=== PATIENT | male | born 1955 | race Caucasian/White ===

== ENCOUNTER → 2018-07-24 | Outpatient (CLI) | payer BC ==
[~2018-07-24] MED LIST: CLONIDINE0.2 MG PO; FENOFIBRATE145 M1 PO; FERROUS SULFATE1 GRA; HYDROCODONE BIT1 T11 PO; INSULIN; LANTUS SOL100 UNIT/1 SQ; LASIX80 MG PO; LISINOPRIL-HCT1 EACH PO; NORVASC2.5 MG PO; PRESERVISION A1 EAC1 PO; RENA-VITE1 TAB PO; Rocaltrol0.25 MCG PO; TRICOR145 MG PO
--- NOTE | ~2018-07-24 | ST ---
[place], [place] EXERCISE STRESS TEST REPORT NAME: MARK COOLEY UNIT #: [id number] ROOM: DOCTOR: FELIPE MATTHEWS [facility],JOHANNE BIRTHDATE: [birth year] DOS: 07/24/2018 PROCEDURE: Lexiscan stress test. FINDINGS: The patient underwent Lexiscan infusion 0.4 mg for 10 seconds. Heart rate is 62. No ischemic changes on EKG. No complication noted. Isotope was injected. Myocardial perfusion scan to follow. No complication noted. JOHANNE WANG MD CM:STRESS:EXERCISE STRESS TEST REPORT [id number] JOHANNE WANG MD [facility]
--- NOTE | 2018-07-24 10:07 | NUR ---
INFORMED CONSENT OBTAINED FOR A LEXISCAN STRESS TEST WITH DR. WANG. RESTING EKG NSR WITH A HT RT OF 61 AND BP OF 124/66. BREATH SOUNDS CLEAR, SPO2 92% VIA RA. COMPLETED ONE MINUTE OF A LEXISCAN PROTOCOL RECEIVING LEXISCAN 0.4 MG OVER 10 SECONDS. DEVELOPED AN "ODD FEELING" THAT WAS RELIEVED IN RECOVERY. HAD A PEAK HT RT OF 62 WITH A BP OF 142/62. LAST RECOVERY HT RT OF 61 WITH A BP OF 130/60. AWAITING NUCLEAR IMAGING IN STABLE CONDITION
== END | disposition home or self-care (01) ==
LOC: CARD 03:09
DX: Z01.818 Encounter for other preprocedural examination (principal); R06.02 Shortness of breath; R53.81 Other malaise

== ENCOUNTER 2019-06-24 10:22 | Emergency (ER) | payer BC, MEDICARE ==
[~2019-06-24] VITALS: Ht 175.2 cm; Wt 136.1 kg
[2019-06-24 10:45] LABS: BASO # 0.1 10*3/uL (0.0-0.1); BASO % 0.6 % (0.0-1.0); EOS # 0.3 10*3/uL (0.0-0.4); EOS % 3.4 % (1.0-4.0); HEMATOCRIT 31.9 % (42.0-52.0); HEMOGLOBIN 9.7 g/dl (14.0-18.0); LYMPH # 1.5 10*3/uL (1.3-4.4); LYMPH % 18.1 % (27.0-41.0); MEAN CELL VOLUME 97.9 fl (80.0-94.0); MEAN CORPUSCULAR HGB 29.8 pg (27.0-31.0); MEAN CORPUSCULAR HGB CONC 30.4 g/dl (33.0-37.0); MEAN PLATELET VOLUME 9.3 fl (9.6-12.3); MONO # 0.7 10*3/uL (0.1-1.0); MONO % 8.1 % (3.0-9.0); NEUT # 5.7 10*3/uL (2.3-7.9); NEUT % 69.6 % (47.0-73.0); PLATELET COUNT AUTOMATED 239 10*3/uL (130-400); RED BLOOD COUNT 3.26 10*6/uL (4.50-5.90); RED CELL DISTRI WIDTH 18.5 % (0-14.5); WHITE BLOOD COUNT 8.2 10*3/uL (4.8-10.8)
[2019-06-24 10:54] LABS: ACT PARTIAL THROMBO TIME 31.3 SECONDS (20.0-32.1); INTERNATIONAL NORM RATIO 1.1 (2.0-3.5)
[2019-06-24 11:00] LABS: ALBUMIN 3.2 gm/dl (3.1-4.5); ALKALINE PHOSPHATASE 54 U/L (45-117); BUN 21 mg/dl (7-24); CHLORIDE 99 mmol/L (98-107); CREATININE 3.56 mg/dL (0.70-1.30); POTASSIUM 3.8 mmol/L (3.5-5.1); SGOT/AST 11 IU/L (3-35); SGPT/ALT 13 U/L (12-78); SODIUM 138 mmol/L (136-145); TOTAL PROTEIN 7.5 gm/dL (6.4-8.2)
[2019-06-24 11:05] LABS: TROPONIN I < 0.015 ng/ml (<0.045)
== END 2019-06-24 12:02 | disposition home or self-care (01) ==
LOC: ED 10:22
PROVIDERS: Emergency Medicine
DX: R06.00 Dyspnea, unspecified (principal); R06.02 Shortness of breath; R05 Cough; I50.9 Heart failure, unspecified; I10 Essential (primary) hypertension; E11.9 Type 2 diabetes mellitus without complications; M10.9 Gout, unspecified; Z79.899 Other long term (current) drug therapy; Z79.4 Long term (current) use of insulin

== ENCOUNTER → 2019-07-02 | Outpatient (CLI) | payer MEDICARE, BC ==
--- NOTE | 2019-07-02 13:57 | NUR ---
SPEECH PATHOLOGY Outpatient MBS completed as per orders. Patient was alert and cooperative and reported a feelig of globus when eating as well as cough. He recently presented to ED 06/24/19 due to increased cough and phlegm. Medical history is significant for CHF, DM, HTN. Patient receives dialysis 3x weekly. He consumes a regular diet and thin liquid. Oral musculature exam revealed presence of natural teeth which were in good condition. Lingual/labial/buccal skills were WNL. Patient was able to volitionally cough and swallow. Hoarse vocal quality was displayed. Patient was assessed with puree, solids and thin liquid. Results revealed oral/pharyngeal swallowing skills essentially WNL. He did display transient upper airway penetration with thin liquids when taken in large sip. Recommend regular diet and thin liquid, with liquid taken in small single sip. Recommend follow up with physician if hoarseness does not improve. Results and caroline. were shared with patient and family and they verbalized understanding. Dictated report to follow. Thank you for this referral. CLARISA RAMIREZ MSCCC-SENIOR SHAREPOINT DEVELOPER
== END | disposition home or self-care (01) ==
LOC: RAD/SH 07-01 10:00
DX: R13.10 Dysphagia, unspecified (principal)

== ENCOUNTER 2020-04-20 09:23 | Inpatient (IN) | payer MEDICARE, BC ==
[2020-04-20] VITALS (13 sets, daily range): BP systolic 106–155; BP diastolic 46–68
[~2020-04-20] VITALS: Ht 180 cm; Wt 97.1 kg
[2020-04-20 10:14] LABS: BASO # 0.1 10*3/uL (0.0-0.1); BASO % 0.6 % (0.0-1.0); EOS # 0.4 10*3/uL (0.0-0.4); LYMPH % 11.9 % (27.0-41.0); MEAN CELL VOLUME 98.3 fl (80.0-94.0); MEAN CORPUSCULAR HGB 29.9 pg (27.0-31.0); MEAN CORPUSCULAR HGB CONC 30.4 g/dl (33.0-37.0); MEAN PLATELET VOLUME 9.2 fl (9.6-12.3); MONO # 0.9 10*3/uL (0.1-1.0); MONO % 10.7 % (3.0-9.0); NEUT % 71.7 % (47.0-73.0); PLATELET COUNT AUTOMATED 262 10*3/uL (130-400); RED BLOOD COUNT 2.34 10*6/uL (4.50-5.90); RED CELL DISTRI WIDTH 16.4 % (0-14.5); WHITE BLOOD COUNT 8.3 10*3/uL (4.8-10.8)
[2020-04-20 10:35] LABS: ALBUMIN 2.3 gm/dl (3.1-4.5); CREATININE 5.58 mg/dL (0.70-1.30); POTASSIUM 3.9 mmol/L (3.5-5.1); TOTAL PROTEIN 6.1 gm/dL (6.4-8.2); TROPONIN I 0.028 ng/ml (<0.045)
[2020-04-20] MEDS ORDERED: DIGITEK125 MCG PO (12:07)
[2020-04-20] MEDS ORDERED: DILTIAZEM HCL60 M1 PO (12:08)
[2020-04-20] MEDS ORDERED: ECOTRIN81 M1 PO (12:08)
[2020-04-20] MEDS ORDERED: FOSRENOL500 MG PO (12:11)
[2020-04-20] MEDS ORDERED: IMODIUM A-D2 M2 PO (12:12)
[2020-04-20] MEDS ORDERED: IMDUR SA60 M1 PO (12:13)
[2020-04-20] MEDS ORDERED: PRINIVIL20 M1 PO (12:14)
[2020-04-20] MEDS ORDERED: MELATONIN3 M3 PO (12:14)
[2020-04-20] MEDS ORDERED: LOPRESSOR100 M1 PO ×2 (12:15→16:18)
[2020-04-20] MEDS ORDERED: PLAVIX75 M1 PO (12:15)
[2020-04-20] MEDS ORDERED: PROTONIX20 MG PO (16:19)
[2020-04-20] MEDS ORDERED: RENAL VITAMIN0.8 MG PO (16:20)
[2020-04-21] VITALS: BP 154/65
[2020-04-21 05:42] LABS: ALBUMIN 2.5 gm/dl (3.1-4.5); CREATININE 6.06 mg/dL (0.70-1.30); POTASSIUM 4.4 mmol/L (3.5-5.1); TOTAL PROTEIN 6.7 gm/dL (6.4-8.2)
[2020-04-21 05:48] LABS: THYROID STIM HORMONE (HS) 2.62 uIU/ml (0.358-4.75)
[2020-04-21 06:15] LABS: BASO % 0.4 % (0.0-1.0); EOS # 0.6 10*3/uL (0.0-0.4); EOS % 5.5 % (1.0-4.0); HEMATOCRIT 27.4 % (42.0-52.0); LYMPH # 1.1 10*3/uL (1.3-4.4); LYMPH % 9.6 % (27.0-41.0); MEAN CELL VOLUME 97.9 fl (80.0-94.0); MEAN CORPUSCULAR HGB CONC 30.7 g/dl (33.0-37.0); MEAN PLATELET VOLUME 9.7 fl (9.6-12.3); MONO # 1.1 10*3/uL (0.1-1.0); MONO % 9.3 % (3.0-9.0); NEUT # 8.5 10*3/uL (2.3-7.9); NEUT % 74.8 % (47.0-73.0); PLATELET COUNT AUTOMATED 315 10*3/uL (130-400); RED CELL DISTRI WIDTH 16.6 % (0-14.5); WHITE BLOOD COUNT 11.4 10*3/uL (4.8-10.8)
[2020-04-21 06:17] LABS: ACT PARTIAL THROMBO TIME 28.2 SECONDS (20.0-32.1); INTERNATIONAL NORM RATIO 1.1 (2.0-3.5)
[2020-04-21 07:48] LABS: VITAMIN D, 25-HYDROXY 32.5 ng/mL (30-100)
[2020-04-21 08:00] VITALS: BP 138/57
[2020-04-21 09:06] LABS: HEP B CORE AB, IGM Negative (Negative); HEPATITIS B SURFACE AG Negative (Negative); HEPATITIS C VIRUS ANTIBODY <0.1 s/co (0.0-0.9)
[2020-04-21 12:00] VITALS: BP 120/59
[2020-04-21 16:00] VITALS: BP 129/54
[2020-04-21 20:00] VITALS: BP 131/54
[2020-04-22] VITALS: BP 127/45
[2020-04-22 06:33] LABS: BASO # 0.1 10*3/uL (0.0-0.1); BASO % 0.5 % (0.0-1.0); EOS # 0.7 10*3/uL (0.0-0.4); EOS % 7.2 % (1.0-4.0); LYMPH % 9.9 % (27.0-41.0); MEAN CELL VOLUME 97.4 fl (80.0-94.0); MEAN CORPUSCULAR HGB CONC 30.8 g/dl (33.0-37.0); MEAN PLATELET VOLUME 9.4 fl (9.6-12.3); MONO % 9.8 % (3.0-9.0); NEUT # 7.2 10*3/uL (2.3-7.9); NEUT % 72.2 % (47.0-73.0); PLATELET COUNT AUTOMATED 278 10*3/uL (130-400); RED BLOOD COUNT 2.67 10*6/uL (4.50-5.90); RED CELL DISTRI WIDTH 16.6 % (0-14.5); WHITE BLOOD COUNT 9.9 10*3/uL (4.8-10.8)
[2020-04-22 07:01] LABS: CREATININE 7.2 mg/dL (0.70-1.30); POTASSIUM 4.5 mmol/L (3.5-5.1)
[2020-04-22 08:00] VITALS: BP 140/60
[2020-04-22 14:00] VITALS: BP 154/58
[2020-04-22 20:00] VITALS: BP 96/41
[2020-04-23] VITALS: BP 134/63
[2020-04-23 06:20] LABS: BASO % 0.4 % (0.0-1.0); EOS # 0.6 10*3/uL (0.0-0.4); EOS % 5.4 % (1.0-4.0); HEMATOCRIT 25.1 % (42.0-52.0); LYMPH # 1.3 10*3/uL (1.3-4.4); LYMPH % 12.3 % (27.0-41.0); MEAN CELL VOLUME 97.3 fl (80.0-94.0); MEAN CORPUSCULAR HGB 30.2 pg (27.0-31.0); MEAN CORPUSCULAR HGB CONC 31.1 g/dl (33.0-37.0); MEAN PLATELET VOLUME 9.6 fl (9.6-12.3); MONO # 1.1 10*3/uL (0.1-1.0); MONO % 10.3 % (3.0-9.0); NEUT # 7.5 10*3/uL (2.3-7.9); NEUT % 71.2 % (47.0-73.0); PLATELET COUNT AUTOMATED 313 10*3/uL (130-400); RED BLOOD COUNT 2.58 10*6/uL (4.50-5.90); RED CELL DISTRI WIDTH 16.6 % (0-14.5); WHITE BLOOD COUNT 10.5 10*3/uL (4.8-10.8)
[2020-04-23 06:25] LABS: POTASSIUM 3.9 mmol/L (3.5-5.1); TOTAL PROTEIN 5.8 gm/dL (6.4-8.2)
[2020-04-23 06:26] LABS: CREATININE 4.66 mg/dL (0.70-1.30)
[2020-04-23 08:00] VITALS: BP 155/53
[2020-04-23 12:00] VITALS: BP 125/58
[2020-04-23 16:00] VITALS: BP 120/63; BP 149/57
[2020-04-23 18:27] LABS: LIPASE 138 U/L (73-393)
[2020-04-23 20:00] VITALS: BP 123/47
[2020-04-24] VITALS: BP 142/62
[2020-04-24 07:07] LABS: BASO % 0.4 % (0.0-1.0); EOS # 0.6 10*3/uL (0.0-0.4); EOS % 6.3 % (1.0-4.0); HEMATOCRIT 25.5 % (42.0-52.0); LYMPH # 1.2 10*3/uL (1.3-4.4); LYMPH % 13.5 % (27.0-41.0); MEAN CELL VOLUME 96.2 fl (80.0-94.0); MEAN CORPUSCULAR HGB 29.8 pg (27.0-31.0); MEAN PLATELET VOLUME 9.1 fl (9.6-12.3); MONO % 10.9 % (3.0-9.0); NEUT # 6.2 10*3/uL (2.3-7.9); NEUT % 68.2 % (47.0-73.0); PLATELET COUNT AUTOMATED 290 10*3/uL (130-400); RED BLOOD COUNT 2.65 10*6/uL (4.50-5.90); RED CELL DISTRI WIDTH 16.3 % (0-14.5); WHITE BLOOD COUNT 9.1 10*3/uL (4.8-10.8)
[2020-04-24 07:26] LABS: CREATININE 5.93 mg/dL (0.70-1.30); POTASSIUM 4.1 mmol/L (3.5-5.1)
[2020-04-24 12:00] VITALS: BP 136/82
[2020-04-24 16:00] VITALS: BP 135/64
[2020-04-24 20:00] VITALS: BP 165/69
[2020-04-24 21:45] VITALS: BP 148/58
[2020-04-25] VITALS: BP 148/65
[2020-04-25 06:07] LABS: BASO % 0.4 % (0.0-1.0); EOS # 0.6 10*3/uL (0.0-0.4); EOS % 6.6 % (1.0-4.0); HEMATOCRIT 26.4 % (42.0-52.0); LYMPH # 1.2 10*3/uL (1.3-4.4); LYMPH % 13.5 % (27.0-41.0); MEAN CELL VOLUME 95.7 fl (80.0-94.0); MEAN CORPUSCULAR HGB 29.3 pg (27.0-31.0); MEAN CORPUSCULAR HGB CONC 30.7 g/dl (33.0-37.0); MEAN PLATELET VOLUME 9.6 fl (9.6-12.3); MONO % 11.2 % (3.0-9.0); NEUT # 6.1 10*3/uL (2.3-7.9); NEUT % 67.6 % (47.0-73.0); PLATELET COUNT AUTOMATED 328 10*3/uL (130-400); RED BLOOD COUNT 2.76 10*6/uL (4.50-5.90); RED CELL DISTRI WIDTH 16.1 % (0-14.5)
[2020-04-25 06:25] LABS: CREATININE 6.72 mg/dL (0.70-1.30); POTASSIUM 4.6 mmol/L (3.5-5.1)
[2020-04-25 08:00] VITALS: BP 95/69
[2020-04-25 12:00] VITALS: BP 138/51
[2020-04-25 16:00] VITALS: BP 176/71
[2020-04-25 20:00] VITALS: BP 150/51
[2020-04-25 20:45] VITALS: BP 158/65
[2020-04-26] VITALS (11 sets, daily range): BP systolic 132–176; BP diastolic 42–74
[2020-04-26 05:57] LABS: ALBUMIN 2.1 gm/dl (3.1-4.5); CREATININE 4.76 mg/dL (0.70-1.30); POTASSIUM 3.9 mmol/L (3.5-5.1)
[2020-04-26 06:00] LABS: BASO # 0.1 10*3/uL (0.0-0.1); BASO % 0.5 % (0.0-1.0); EOS # 0.5 10*3/uL (0.0-0.4); EOS % 5.1 % (1.0-4.0); HEMATOCRIT 27.1 % (42.0-52.0); LYMPH # 1.3 10*3/uL (1.3-4.4); MEAN CELL VOLUME 96.8 fl (80.0-94.0); MEAN CORPUSCULAR HGB 30.4 pg (27.0-31.0); MEAN CORPUSCULAR HGB CONC 31.4 g/dl (33.0-37.0); MEAN PLATELET VOLUME 9.5 fl (9.6-12.3); MONO # 1.2 10*3/uL (0.1-1.0); NEUT # 6.7 10*3/uL (2.3-7.9); NEUT % 68.7 % (47.0-73.0); PLATELET COUNT AUTOMATED 317 10*3/uL (130-400); RED CELL DISTRI WIDTH 15.9 % (0-14.5); WHITE BLOOD COUNT 9.8 10*3/uL (4.8-10.8)
[2020-04-27] VITALS: BP 131/46
[2020-04-27 02:25] VITALS: BP 169/71
[2020-04-27 06:05] LABS: CREATININE 6.07 mg/dL (0.70-1.30); POTASSIUM 4.1 mmol/L (3.5-5.1)
[2020-04-27 06:10] LABS: BASO # 0.1 10*3/uL (0.0-0.1); BASO % 0.6 % (0.0-1.0); EOS # 0.4 10*3/uL (0.0-0.4); EOS % 4.2 % (1.0-4.0); HEMATOCRIT 25.7 % (42.0-52.0); LYMPH # 1.2 10*3/uL (1.3-4.4); LYMPH % 12.8 % (27.0-41.0); MEAN CELL VOLUME 97.3 fl (80.0-94.0); MEAN CORPUSCULAR HGB 29.9 pg (27.0-31.0); MEAN CORPUSCULAR HGB CONC 30.7 g/dl (33.0-37.0); MEAN PLATELET VOLUME 9.4 fl (9.6-12.3); MONO % 11.1 % (3.0-9.0); NEUT # 6.4 10*3/uL (2.3-7.9); NEUT % 70.5 % (47.0-73.0); PLATELET COUNT AUTOMATED 296 10*3/uL (130-400); RED BLOOD COUNT 2.64 10*6/uL (4.50-5.90); WHITE BLOOD COUNT 9.1 10*3/uL (4.8-10.8)
[2020-04-27 08:00] VITALS: BP 146/46
[2020-04-27 16:00] VITALS: BP 108/47
[2020-04-27 20:00] VITALS: BP 98/48
[2020-04-28] VITALS: BP 148/49
[2020-04-28 08:00] VITALS: BP 120/66
[2020-04-28 08:25] LABS: BASO # 0.1 10*3/uL (0.0-0.1); BASO % 0.5 % (0.0-1.0); EOS # 0.4 10*3/uL (0.0-0.4); EOS % 4.4 % (1.0-4.0); LYMPH # 1.2 10*3/uL (1.3-4.4); LYMPH % 12.2 % (27.0-41.0); MEAN CELL VOLUME 96.3 fl (80.0-94.0); MEAN CORPUSCULAR HGB 29.3 pg (27.0-31.0); MEAN CORPUSCULAR HGB CONC 30.4 g/dl (33.0-37.0); MEAN PLATELET VOLUME 9.5 fl (9.6-12.3); MONO # 1.2 10*3/uL (0.1-1.0); NEUT # 6.9 10*3/uL (2.3-7.9); NEUT % 70.1 % (47.0-73.0); NUCLEATED RED BLOOD CELL 0.2 % (0.0-0.0); PLATELET COUNT AUTOMATED 302 10*3/uL (130-400); RED CELL DISTRI WIDTH 15.9 % (0-14.5); WHITE BLOOD COUNT 9.9 10*3/uL (4.8-10.8)
[2020-04-28 08:37] LABS: CREATININE 4.41 mg/dL (0.70-1.30); POTASSIUM 4.3 mmol/L (3.5-5.1); TOTAL PROTEIN 5.9 gm/dL (6.4-8.2)
[2020-04-28 12:00] VITALS: BP 110/86
[2020-04-28 16:00] VITALS: BP 126/40
[2020-04-28 20:00] VITALS: BP 115/41
[2020-04-29] VITALS (9 sets, daily range): BP systolic 114–165; BP diastolic 46–92
[2020-04-29 06:20] LABS: BASO # 0.1 10*3/uL (0.0-0.1); BASO % 0.5 % (0.0-1.0); EOS # 0.6 10*3/uL (0.0-0.4); HEMATOCRIT 26.2 % (42.0-52.0); LYMPH # 1.4 10*3/uL (1.3-4.4); LYMPH % 12.2 % (27.0-41.0); MEAN CELL VOLUME 97.4 fl (80.0-94.0); MEAN CORPUSCULAR HGB 30.1 pg (27.0-31.0); MEAN CORPUSCULAR HGB CONC 30.9 g/dl (33.0-37.0); MEAN PLATELET VOLUME 9.5 fl (9.6-12.3); MONO # 1.1 10*3/uL (0.1-1.0); NEUT % 71.7 % (47.0-73.0); PLATELET COUNT AUTOMATED 297 10*3/uL (130-400); RED BLOOD COUNT 2.69 10*6/uL (4.50-5.90); RED CELL DISTRI WIDTH 15.9 % (0-14.5); WHITE BLOOD COUNT 11.1 10*3/uL (4.8-10.8)
[2020-04-29 06:45] LABS: CREATININE 5.69 mg/dL (0.70-1.30); POTASSIUM 4.6 mmol/L (3.5-5.1)
[2020-04-29] MEDS ORDERED: CEFEPIME2 GM/100 M IV (15:06)
[2020-04-30] VITALS: BP 103/42
[2020-04-30 08:00] VITALS: BP 143/61
[2020-04-30 13:00] VITALS: BP 155/65
== END 2020-04-30 16:00 | disposition other institution (70) | DRG 444 ==
LOC: ED 09:23 → EDHOLD 11:54 → 4E 11:54
PROVIDERS: Emergency Medicine; Family Medicine; Hospitalist; Student in an Organized Health Care Education/Training Program; Surgery; ADMIT Internal Medicine; ATTEND Internal Medicine
PROC: 30233N1 Transfusion of Nonautologous Red Blood Cells into Peripheral Vein, Percutaneous Approach (ICD-10-PCS; principal; 2020-04-20)
PROC: 0W9G3ZZ Drainage of Peritoneal Cavity, Percutaneous Approach (ICD-10-PCS; 2020-04-21)
PROC: 5A1D70Z Performance of Urinary Filtration, Intermittent, Less than 6 Hours Per Day (ICD-10-PCS; 2020-04-22)
PROC: 0F798DZ Dilation of Common Bile Duct with Intraluminal Device, Via Natural or Artificial Opening Endoscopic (ICD-10-PCS; 2020-04-26)
PROC: 0FD98ZX Extraction of Common Bile Duct, Via Natural or Artificial Opening Endoscopic, Diagnostic (ICD-10-PCS; 2020-04-29)
PROC: 0F798DZ Dilation of Common Bile Duct with Intraluminal Device, Via Natural or Artificial Opening Endoscopic (ICD-10-PCS; 2020-04-29)
PROC: 0FPB8DZ Removal of Intraluminal Device from Hepatobiliary Duct, Via Natural or Artificial Opening Endoscopic (ICD-10-PCS; 2020-04-29)
DX: K83.9 Disease of biliary tract, unspecified (principal); K65.2 Spontaneous bacterial peritonitis; E43 Unspecified severe protein-calorie malnutrition; N18.6 End stage renal disease; R18.8 Other ascites; I12.0 Hypertensive chronic kidney disease with stage 5 chronic kidney disease or end stage renal disease; J44.9 Chronic obstructive pulmonary disease, unspecified; H54.61 Unqualified visual loss, right eye, normal vision left eye; I48.91 Unspecified atrial fibrillation; R00.1 Bradycardia, unspecified; E11.22 Type 2 diabetes mellitus with diabetic chronic kidney disease; I77.9 Disorder of arteries and arterioles, unspecified; I25.10 Atherosclerotic heart disease of native coronary artery without angina pectoris; D64.9 Anemia, unspecified; E11.621 Type 2 diabetes mellitus with foot ulcer; L97.519 Non-pressure chronic ulcer of other part of right foot with unspecified severity; L97.529 Non-pressure chronic ulcer of other part of left foot with unspecified severity; E11.622 Type 2 diabetes mellitus with other skin ulcer; L98.499 Non-pressure chronic ulcer of skin of other sites with unspecified severity; B96.89 Other specified bacterial agents as the cause of diseases classified elsewhere; Z20.828 Contact with and (suspected) exposure to other viral communicable diseases; Z82.49 Family history of ischemic heart disease and other diseases of the circulatory system; Z99.2 Dependence on renal dialysis; Z68.36 Body mass index [BMI] 36.0-36.9, adult; Z83.3 Family history of diabetes mellitus; Z79.899 Other long term (current) drug therapy; Z79.82 Long term (current) use of aspirin; Z86.73 Personal history of transient ischemic attack (TIA), and cerebral infarction without residual deficits; Z90.49 Acquired absence of other specified parts of digestive tract; Z90.5 Acquired absence of kidney; Z82.3 Family history of stroke

== ENCOUNTER → 2020-05-13 | Outpatient (CLI) | payer MEDICARE, BC ==
[2020-05-13] VITALS (11 sets, daily range): BP systolic 133–194; BP diastolic 44–96
[~2020-05-13] MED LIST changes: +CEFEPIME2 GM/100 M IV; +DIGITEK125 MCG PO; +DILTIAZEM HCL60 M1 PO; +ECOTRIN81 M1 PO; +FOSRENOL500 MG PO; +IMDUR SA60 M1 PO; +IMODIUM A-D2 M2 PO; +LOPRESSOR100 M1 PO; +MELATONIN3 M3 PO; +PLAVIX75 M1 PO; +PRINIVIL20 M1 PO; +PROTONIX20 MG PO; +RENAL VITAMIN0.8 MG PO
[2020-05-13 12:14] LABS: BASO % 0.5 % (0.0-1.0); EOS # 0.4 10*3/uL (0.0-0.4); EOS % 4.9 % (1.0-4.0); HEMATOCRIT 23.5 % (42.0-52.0); LYMPH # 1.2 10*3/uL (1.3-4.4); LYMPH % 14.3 % (27.0-41.0); MEAN CELL VOLUME 93.6 fl (80.0-94.0); MEAN CORPUSCULAR HGB 27.9 pg (27.0-31.0); MEAN CORPUSCULAR HGB CONC 29.8 g/dl (33.0-37.0); MEAN PLATELET VOLUME 9.8 fl (9.6-12.3); MONO # 0.7 10*3/uL (0.1-1.0); MONO % 8.7 % (3.0-9.0); NEUT # 5.7 10*3/uL (2.3-7.9); PLATELET COUNT AUTOMATED 200 10*3/uL (130-400); RED BLOOD COUNT 2.51 10*6/uL (4.50-5.90); RED CELL DISTRI WIDTH 15.6 % (0-14.5)
--- NOTE | 2020-05-13 13:00 | NUR ---
TOLERATING BLOOD TRANSFUSION WELL. LUNCH TAKEN 100%. VSS. NO DISTRESS NOTED. SAMAN BE RN
== END | disposition home or self-care (01) ==
LOC: TRNFUSION 10:00
PROVIDERS: ATTEND Internal Medicine
DX: D64.9 Anemia, unspecified (principal); E10.9 Type 1 diabetes mellitus without complications; I10 Essential (primary) hypertension; Z87.891 Personal history of nicotine dependence